=== PATIENT | female | born 1970 | race Hispanic/Latino ===

== ENCOUNTER 2022-01-03 07:38 | Outpatient (CLI) | payer OTHER | END 2022-01-03 07:39 | disposition home or self-care (01) | LOC: CSHCT 07:38 | PROVIDERS: ATTEND Physician Assistant | DX: R19.00 Intra-abdominal and pelvic swelling, mass and lump, unspecified site (principal); N83.202 Unspecified ovarian cyst, left side; N94.89 Other specified conditions associated with female genital organs and menstrual cycle | CPT/HCPCS: 72193 ==

== ENCOUNTER 2022-04-18 07:33 | Outpatient (CLI) | payer OTHER ==
[2022-04-18 11:00] LABS: Hemoglobin 13.8 g/dL (12.0-15.5); Mean Corpuscular Hemoglobin 30.7 pg (27.0-33.0); Mean Corpuscular Volume 87.8 fl (81.6-98.3); Mean Platelet Volume 10.4 fl (7.4-10.4); Platelet Count 304 10x3/uL (150-450); RBC Distribution Width 12.6 % (11.5-14.5); Red Blood Cell (RBC) Count 4.49 10x6/uL (3.90-5.03); White Blood Cell (WBC) Count 7.1 10x3/uL (3.5-10.5)
[2022-04-18 11:22] LABS: BHCG - Serum Negative (NEGATIVE); Pregs Control Background? CLEAR/WHITE (CLR/WHITE); Pregs Control Bar Appear? YES (CONTROL BAR)
[2022-04-18 11:27] LABS: Anion Gap 15 mmol/L (10-20); Calc. Creatinine Clearance 0 mL/min (70-130); Calcium 9.8 mg/dL (7.8-10.44); Carbon Dioxide 27 mmol/L (22-29); Chloride 102 mmol/L (98-107); Estimated GFR 94; Glucose 141 mg/dL (70-105); Potassium 4.1 mmol/L (3.5-5.1); Sodium 140 mmol/L (136-145)
[2022-04-18 12:07] LABS: BUN (Urea Nitrogen) 16 mg/dL (9.8-20.1)
== END 2022-04-18 07:34 | disposition home or self-care (01) ==
LOC: CSHLAB 07:33
PROVIDERS: ATTEND Student in an Organized Health Care Education/Training Program
DX: Z01.818 Encounter for other preprocedural examination (principal); N70.11 Chronic salpingitis; D25.9 Leiomyoma of uterus, unspecified
CPT/HCPCS: 80048; 84703; 85027; 86850; 86900; 86901; 93005; 93010

== ENCOUNTER 2022-04-23 09:19 | Day surgery (SDC) | payer OTHER ==
[2022-04-18 11:00] LABS: Hemoglobin 13.8 g/dL (12.0-15.5); Mean Corpuscular Hemoglobin 30.7 pg (27.0-33.0); Mean Corpuscular Volume 87.8 fl (81.6-98.3); Mean Platelet Volume 10.4 fl (7.4-10.4); Platelet Count 304 10x3/uL (150-450); RBC Distribution Width 12.6 % (11.5-14.5); Red Blood Cell (RBC) Count 4.49 10x6/uL (3.90-5.03); White Blood Cell (WBC) Count 7.1 10x3/uL (3.5-10.5)
[2022-04-18 11:22] LABS: BHCG - Serum Negative (NEGATIVE); Pregs Control Background? CLEAR/WHITE (CLR/WHITE); Pregs Control Bar Appear? YES (CONTROL BAR)
[2022-04-18 11:27] LABS: Anion Gap 15 mmol/L (10-20); Calc. Creatinine Clearance 0 mL/min (70-130); Calcium 9.8 mg/dL (7.8-10.44); Carbon Dioxide 27 mmol/L (22-29); Chloride 102 mmol/L (98-107); Estimated GFR 94; Glucose 141 mg/dL (70-105); Potassium 4.1 mmol/L (3.5-5.1); Sodium 140 mmol/L (136-145)
[2022-04-18 12:07] LABS: BUN (Urea Nitrogen) 16 mg/dL (9.8-20.1)
[2022-04-22 12:59] VITALS: BMI 28.1
[2022-04-23] MEDS ORDERED: CeleCOXIB 100 MG CAP ONE (09:26)
[2022-04-23] MEDS ORDERED: Bupivacaine PF 0.5% 30 ML VIAL ONE (09:56)
[2022-04-23] MEDS ORDERED: EPINEPHrine 1 MG/ML AMP ONE (09:56)
[2022-04-23] MEDS ORDERED: Ondansetron PF 4 MG/2 ML Vial ONE (10:00)
[2022-04-23] MEDS ORDERED: Metoclopramide HCl 10 MG/2 ML VIAL ONE (10:00)
[2022-04-23] MEDS ORDERED: Fentanyl 100 MCG/2 ML VIAL ONE (10:00)
[2022-04-23] MEDS ORDERED: Dexamethasone 20 MG/5 ML VIAL ONE (10:00)
[2022-04-23] MEDS ORDERED: PROPOFOL 20 ML ONE ×2 (10:00→12:40)
[2022-04-23] MEDS ORDERED: Rocuronium Bromide 10 MG/ML (10ML VIAL) ONE (10:00)
[2022-04-23] MEDS ORDERED: Lidocaine 2% PF 5 ML VIAL ONE (10:01)
[2022-04-23] MEDS ORDERED: Ketamine 50 MG/ML (10ML VIAL) ONE (10:17)
[2022-04-23] MEDS ORDERED: CEFAZOLIN 2 GM VIAL ONE (10:17)
[2022-04-23] MEDS ORDERED: Midazolam HCl 2 mg/2 ml Vial ONE (11:29)
[2022-04-23] MEDS ORDERED: Glycopyrrolate 0.2 MG/ML 5 ML SYRINGE ONE (12:18)
[2022-04-23] MEDS ORDERED: ePHEDrine Sulfate 50 MG/10 ML VIAL ONE (12:24)
[2022-04-23] MEDS ORDERED: Meperidine HCl/PF 25 MG/ML VIAL ONE (13:31)
== END 2022-04-23 14:30 | disposition home or self-care (01) ==
LOC: CSHSDC 09:19
PROVIDERS: ATTEND Student in an Organized Health Care Education/Training Program
PROC: 0UB98ZZ Excision of Uterus, Via Natural or Artificial Opening Endoscopic (ICD-10-PCS; principal; 2022-04-23)
PROC: 0U5B8ZZ Destruction of Endometrium, Via Natural or Artificial Opening Endoscopic (ICD-10-PCS; 2022-04-23)
PROC: 0UDB8ZZ Extraction of Endometrium, Via Natural or Artificial Opening Endoscopic (ICD-10-PCS; 2022-04-23)
PROC: 0UT54ZZ Resection of Right Fallopian Tube, Percutaneous Endoscopic Approach (ICD-10-PCS; 2022-04-23)
DX: N70.11 Chronic salpingitis (principal); D25.0 Submucous leiomyoma of uterus; D25.2 Subserosal leiomyoma of uterus; N80.3C2 Endometriosis of the left uterosacral ligament, unspecified depth; N84.0 Polyp of corpus uteri; N73.6 Female pelvic peritoneal adhesions (postinfective); N92.0 Excessive and frequent menstruation with regular cycle; E11.9 Type 2 diabetes mellitus without complications; J45.909 Unspecified asthma, uncomplicated; E78.5 Hyperlipidemia, unspecified; I10 Essential (primary) hypertension; Z79.84 Long term (current) use of oral hypoglycemic drugs; Z79.899 Other long term (current) drug therapy; Z98.51 Tubal ligation status
CPT/HCPCS: 36415; 80048; 84703; 85027; 86850; 86900; 86901; 88304; 88305; C1713; J0171; J1100; J2001; J2175; J2250; J2405; J2704; J2765; J3010; S0020